=== PATIENT | female | born 2000 | race Caucasian/White ===

== ENCOUNTER 2022-06-26 21:39 | Inpatient (IN) | payer MEDICAID ==
[~2022-06-26] VITALS: Ht 160 cm; Wt 70.3 kg
[2022-06-26] MEDS ORDERED: MESA800T9 PO (22:32)
[2022-06-26] MEDS ORDERED: PRED20TA PO (22:32)
[2022-06-26] MEDS ORDERED: methylPREDNISolone SOD SUCC 125 MG/2 ML VIAL IV ONE (22:45)
[2022-06-26] MEDS ORDERED: IV NORMAL SALINE 1000 ML BAG IV ONE (22:45)
[2022-06-26] MEDS ORDERED: ONDANSETRON 4 MG/2 ML VIAL IV ONE (22:45)
--- NOTE | 2022-06-26 23:04 | NUR ---
Patient to room #5, awaiting MD exam, informed of plan of care at this time. Urine collected, #24g established in left ring finger, unable to collect blood at this time. Patient is aler and oriented x 4, ileostomy intact, slight generalized edema noted. will continue to monitor.
[2022-06-26] MEDS ORDERED: ONDANSETRON 4 MG/2 ML VIAL ONE (23:08)
[2022-06-26] MEDS ORDERED: methylPREDNISolone SOD SUCC 125 MG/2 ML VIAL ONE (23:08)
--- NOTE | 2022-06-26 23:25 | NUR ---
IVF infusing as per order, medicated as per order, awaiting lab draw.
[2022-06-26] MEDS ORDERED: diphenhydrAMINE 50 MG/1 ML VIAL IV ONE (23:30)
[2022-06-26] MEDS ORDERED: HYDROMORPHONE 1 MG/1 ML DISP.SYRIN IV ONE (23:30)
[2022-06-26] MEDS ORDERED: diphenhydrAMINE 50 MG/1 ML VIAL ONE (23:31)
[2022-06-26] MEDS ORDERED: HYDROMORPHONE 1 MG/1 ML DISP.SYRIN ONE (23:32)
--- NOTE | 2022-06-26 23:40 | NUR ---
Medicated for pain as per order, IVF continues as per order.
[2022-06-26 23:48] LABS: HEMATOCRIT 28.8 % (31.2-41.9); MEAN CORPUSCULAR HEMOGLOBIN 26.3 uug (24.7-32.8); MEAN CORPUSCULAR VOLUME 82.7 fL (75.5-95.3); PLATELET COUNT (AUTO) 337 K/uL (179-408)
[2022-06-27 00:02] LABS: *BILIRUBIN,URIN NEGATIVE (NEGATIVE); *BLOOD, URINE NEGATIVE (NEGATIVE); *CLARITY,URINE CLEAR (CLEAR); *COLOR,URINE YELLOW (YELLOW); *KETONES,URINE NEGATIVE (NEGATIVE); *UROBILINOGEN,URINE 0.2 E.U./dl (NORMAL); LEUKOCYTE ESTERASE ,URINE NEGATIVE (NEGATIVE); NITRITE, URINE NEGATIVE (NEGATIVE); UGLUCOSE NEGATIVE (NEGATIVE)
[2022-06-27 00:07] LABS: CREATININE 0.7 mg/dL (0.6-1.3); POTASSIUM 4.1 mmol/L (3.5-5.1)
[2022-06-27 00:11] LABS: *URINE HCG, QUAL NEGATIVE (NEGATIVE)
[2022-06-27 00:13] LABS: BILIRUBIN,DIRECT 0.1 mg/dL (0.0-0.2); BILIRUBIN,TOTAL 0.2 mg/dL (0.2-1.0); TOTAL PROTEIN, SERUM 5.9 g/dL (6.4-8.2)
--- NOTE | 2022-06-27 00:28 | NUR ---
Patient awake still c/o pain and nausea, will inform ER MD.
[2022-06-27] MEDS ORDERED: REMEDY ESSENTIAL ZINC PASTE 113 GM TP PRN (00:30)
[2022-06-27] MEDS ORDERED: ONDANSETRON 4 MG/2 ML VIAL IV PRN (00:30)
[2022-06-27] MEDS ORDERED: LORAZEPAM 2 MG/1 ML VIAL IV PRN (00:30)
[2022-06-27] MEDS ORDERED: ACETAMINOPHEN 325 MG TABLET PO PRN (00:30)
--- NOTE | 2022-06-27 01:04 | NUR ---
Patient informed that she will be admitted to the hospital, going to room #320, patient remains stable for transport.
--- NOTE | 2022-06-27 01:40 | NUR ---
Report given to accepting nurse, stable for transport.
--- NOTE | 2022-06-27 01:50 | NUR ---
Received patient from ER via w/c, AAO x4. In no acute distress. Ileostomy intact. Rt ring finger heplock intact. Admission care rendered, oriented to room, TV, BR and call light. Care plan initiated. Needs assessed and attended to.
[2022-06-27 02:00] VITALS: BP 125/86
[2022-06-27] MEDS: IV NS 1000 ML 1,000 ML IV PRN (02:27)
[2022-06-27] MEDS: HYDROMORPHONE 1 MG/1 ML DISP.SYRIN IV PRN ×5 (03:42→22:26)
[2022-06-27 04:00] VITALS: BP 128/83
[2022-06-27] MEDS: PANTOPRAZOLE SODIUM 40 MG VIAL IV SCH (08:40)
[2022-06-27 11:20] VITALS: BP 100/62
--- NOTE | 2022-06-27 12:37 | NUR ---
patient is asking for pain medication called dr joe waiting for response Addendum: 06/27/22 at 1239 by NELIA MEJIA RN, RN wrong documentation
--- NOTE | 2022-06-27 12:45 | NUR ---
unable to insert midline per midline nurse there are no veins to upper extremities, and tired to insert femoral, patient is unable to tolerate. procedure stopped per patient request.
[2022-06-27 15:04] VITALS: BP 102/64
--- NOTE | 2022-06-27 18:45 | NUR ---
patient is alert,oriented x4, no acute distress noted, per MD Mccormick advance diet as tolerated, patient changes her ileostomy herself.
[2022-06-27 20:00] VITALS: BP 103/77
[2022-06-27] MEDS: methylPREDNISolone SOD SUCC 40 MG/ML VIAL IV SCH (22:26)
[2022-06-27] MEDS: diphenhydrAMINE 50 MG/1 ML VIAL IV PRN (22:29)
[2022-06-28] MEDS: HYDROMORPHONE 1 MG/1 ML DISP.SYRIN IV PRN ×7 (02:30→23:26)
[2022-06-28 03:49] VITALS: BP 110/75
--- NOTE | 2022-06-28 04:56 | NUR ---
Patient awake, no sob no chest pain, cont on pain management, abdominal pain. Patient prefer to do her colostomy care, ambulate to toilet for bladder eliminations. cont to monitor.
[2022-06-28] MEDS: diphenhydrAMINE 50 MG/1 ML VIAL IV PRN ×3 (05:14→21:14)
[2022-06-28] MEDS: methylPREDNISolone SOD SUCC 40 MG/ML VIAL IV SCH ×3 (06:05→21:13)
[2022-06-28 10:29] VITALS: BP 126/83
[2022-06-28] MEDS: PANTOPRAZOLE SODIUM 40 MG VIAL IV SCH (10:37)
[2022-06-28 11:13] LABS: HEMATOCRIT 30.2 % (31.2-41.9); MEAN CORPUSCULAR HEMOGLOBIN 25.6 uug (24.7-32.8); MEAN CORPUSCULAR VOLUME 81.5 fL (75.5-95.3); PLATELET COUNT (AUTO) 363 K/uL (179-408)
[2022-06-28 11:29] LABS: CREATININE 0.6 mg/dL (0.6-1.3); MAGNESIUM 1.8 mg/dL (1.8-2.4); PHOSPHOROUS 2.4 mg/dL (2.5-4.9); POTASSIUM 3.9 mmol/L (3.5-5.1)
[2022-06-28 11:53] VITALS: BP 118/80
[2022-06-28 15:50] VITALS: BP 126/78
[2022-06-28] MEDS ORDERED: POTASSIUM PHOSPHATE MM 15 MMOL in IV NORMAL SALINE 250 ML IV ONE (16:00)
[2022-06-28] MEDS ORDERED: NEUTRA PHOS PACKET PO ONE (17:30)
[2022-06-28 20:40] VITALS: BP 122/73
[2022-06-28] MEDS: IV NS 1000 ML 1,000 ML IV PRN (23:26)
[2022-06-29] MEDS: diphenhydrAMINE 50 MG/1 ML VIAL IV PRN ×2 (03:22→09:29)
[2022-06-29] MEDS: HYDROMORPHONE 1 MG/1 ML DISP.SYRIN IV PRN ×3 (03:22→12:32)
[2022-06-29 04:22] VITALS: BP 117/70
[2022-06-29] MEDS: methylPREDNISolone SOD SUCC 40 MG/ML VIAL IV SCH (05:15)
[2022-06-29] MEDS ORDERED: HYDR-3972 PO (08:59)
[2022-06-29] MEDS: PANTOPRAZOLE SODIUM 40 MG VIAL IV SCH (09:26)
[2022-06-29 11:52] VITALS: BP 129/79
--- NOTE | 2022-06-29 13:30 | NUR ---
patient discharged home, tap cad given, no sob, respirations are even nonlabored, skin warm and dry to touch, stable condition, ID removed, IV removed, instructions given to patient, verbalized understanding of it. no acute distress noted, patient verbalizes no pain,ambulatory, self care. belongings are accounted and signed.
== END 2022-06-29 13:30 | disposition home or self-care (01) | DRG 245 ==
LOC: ER 21:43 → MEDSURG3 06-27 00:30
PROVIDERS: ADMIT Internal Medicine; ATTEND Internal Medicine
PROC: B546ZZA Ultrasonography of Right Subclavian Vein, Guidance (ICD-10-PCS; principal; 2022-06-27)
PROC: 05H533Z Insertion of Infusion Device into Right Subclavian Vein, Percutaneous Approach (ICD-10-PCS; principal; 2022-06-27)
DX: K50.90 Crohn's disease, unspecified, without complications (principal); D64.9 Anemia, unspecified; Z93.3 Colostomy status; Z88.0 Allergy status to penicillin; Z88.2 Allergy status to sulfonamides; Z90.49 Acquired absence of other specified parts of digestive tract; Z93.2 Ileostomy status; Z20.822 Contact with and (suspected) exposure to COVID-19
CPT/HCPCS: 36415; 83690; 83735; 84100; 84703; 85025; A4663; C9113; G0378; J1170; J1200; J2405; J2920; J2930; J3490; J7040